=== PATIENT | male | born 1990 | race African-American/Black ===

== ENCOUNTER 2021-06-15 09:01 | Emergency (ER) | payer SELFPAY ==
[2021-06-15 09:04] VITALS: BP 139/70; PULSE 57; RESP 18; TEMP 36.3; O2SAT 100
--- NOTE | 2021-06-15 12:22 | ED.MALEGU ---
HPI - Male Genitourinary General Chief complaint: Urogenital-Male Stated complaint: STD Check Time Seen by Provider: 06/15/21 12:08 Source: patient Mode of arrival: ambulatory Limitations: no limitations History of Present Illness HPI Narrative: This is a 30-year-old male that presents to the emergency department for STD check. Reports he has had abnormal urethral discharge and dysuria over the last couple of days. Would like to be tested and treated for STDs. Denies fever, flank pain, vomiting, or abnormal rashes or lesions. Related Data Allergies Allergy/AdvReac Type Severity Reaction Status Date / Time No Known Allergies Allergy Verified 06/15/21 09:06 Review of Systems Review of Systems: CONSTITUTIONAL: Denies fever GASTROINTESTINAL: Denies vomiting GENITOURINARY: Reports dysuria All systems reviewed & are unremarkable except as noted in HPI and below PMFSH Past Medical History Medical History (Updated 06/15/21 @ 12:24 by Amanda Padron PA-C) No active medical problems Social History Social History (Updated 06/15/21 @ 12:23 by Amanda Padron PA-C) Smoking status: Never smoker Exam Narrative: GENERAL: Well-appearing, well-nourished, and in no acute distress. HEAD: Normocephalic, atraumatic. EYES: EOMI. CHEST: Clear to auscultation. No respiratory distress. No wheezes rales or rhonchi HEART: Regular rate and rhythm. No murmur heard. Normal peripheral pulses. ABDOMEN: Soft, nontender, nondistended, normal active bowel sounds. No CVA tenderness EXTREMITIES: Normal range of motion. No edema. SKIN: Warm, dry, no rash. NEURO: No focal deficits. Alert and oriented x3. PSYCH: Normal mood and affect Course Vital Signs Vital signs: Vital Signs Temperature 97.4 F L 06/15/21 09:04 Pulse Rate 57 L 06/15/21 09:04 Respiratory Rate 18 06/15/21 09:04 Blood Pressure 139/70 06/15/21 09:04 Pulse Oximetry 100 06/15/21 09:04 Temperature 97.4 F L 06/15/21 09:04 Pulse Rate 57 L 06/15/21 09:04 Respiratory Rate 18 06/15/21 09:04 Blood Pressure 139/70 06/15/21 09:04 Pulse Oximetry 100 06/15/21 09:04 MDM - Male Genitourinary MDM Narrative Medical decision making narrative: Patient presents to the emergency department for STD check. Reporting abnormal urethral drainage and dysuria. He is afebrile and nontoxic-appearing. Denies any abnormal rashes or lesions. UA without overt evidence of infection. Chlamydia, gonorrhea and trichomonas were sent. Patient would like to be presumptively treated. Patient is stable and felt appropriate for further outpatient evaluation. He was given warnings to return to the ER Lab Data Attestation: I reviewed the patient's lab results. Labs: Lab Results 06/15/21 Range/Units 12:43 Urine Color Yellow (Yellow) Urine Appearance Clear (Clear) Urine pH 7.0 (5.0-9.0) Ur Specific [place] 1.013 (1.001-1.035) Urine Protein Negative (Negative) mg/dL Urine Glucose (UA) Negative (Negative) mg/dL Urine Ketones Negative (Negative) mg/dL Ur Blood (Man) Negative (Negative) Urine Nitrate Negative (Negative) Urine Bilirubin Negative (Negative) Urine Urobilinogen 2.0 H (<2.0) mg/dL Leukocyte Esterase Rfl Negative (Negative) QUINN/UL Urine RBC 0-2 (0-2) /hpf Urine WBC 0-3 /hpf Ur Squamous Epith Cells Rare (Few) /hpf Urine Mucus Rare /lpf Critical Care Time Critical Care Time Critical Care Time: No Discharge Plan Discharge Clinical Impression: Concern about STD in male without diagnosis Patient Disposition: Home, Self-Care Condition: Stable Instructions: Antibiotic Form, Sexually Transmitted Diseases (ED), Safe Sex Practices (ED) Additional Instructions: Return to the ER if you experience fever, abdominal pain with nausea and vomiting, you are unable to keep down liquids or solids, blood in the urine or any other symptoms that are concerning to you Continue oral antibiotics as prescribed
[2021-06-15] MEDS: cefTRIAXone 1 GM VIAL 0.5 GM IM (12:41)
[2021-06-15] MEDS: metroNIDAZOLE 250 MG TABLET 500 MG PO (12:42)
[2021-06-15] MEDS: DOXYCYCLINE HYCLATE 100 MG TABLET PO (12:42)
[2021-06-15] MEDS: WATER, STERILE FOR INJECTION 10 ML VIAL XX (12:42)
[2021-06-15 12:59] LABS: Add Urine Microscopic? YES; Appearance Urine Clear (Clear); Bilirubin Urine Negative (Negative); Blood Urine Negative (Negative); Color Urine Yellow (Yellow); Glucose Urine UA Negative (Negative); Ketones Urine Negative (Negative); Leukocyte Esterase Ur Negative LEU/UL (Negative); Mucus Urine Rare /lpf; Nitrate Urine Negative (Negative); Protein Urine Negative (Negative); RBC Urine 0-2 /hpf (0-2); Specific Grav Ur 1.013 (1.001-1.035); Squamous Epithelial Cell Urine Rare /hpf (Few); WBC Urine 0-3 /hpf
== END 2021-06-15 13:11 | disposition home or self-care (01) ==
PROVIDERS: Physician Assistant; Emergency Provider Emergency Medicine
DX: R30.0 Dysuria (principal); R36.9 Urethral discharge, unspecified
CPT/HCPCS: 81001; 96372; 99283; A9270; J0696